=== PATIENT | male | born 1960 | race Caucasian/White ===

== ENCOUNTER 2019-03-04 13:22 | Emergency (ER) | payer MEDICAID ==
[~2019-03-04] VITALS: Ht 175.3 cm; Wt 81.8 kg
[~2019-03-04 13:22] MED LIST: CEPH-368 PO
[2019-03-04 13:38] VITALS: BP 141/93
--- NOTE | 2019-03-04 13:42 | NUR ---
PT USING DERAGATORY TERMS WITH RN, PT INFORMED THAT THOSE TERMS WILL NOT BE TOLERATED. PT INFORMED THAT BEHAVIOR LIKE THAT IS HARRASMENT. PT CALLING STAFF "DAVID"
== END 2019-03-04 14:26 | disposition home or self-care (01) ==
LOC: ED 14:20
DX: L03.811 Cellulitis of head [any part, except face] (principal); L03.211 Cellulitis of face; L03.311 Cellulitis of abdominal wall; F17.210 Nicotine dependence, cigarettes, uncomplicated
CPT/HCPCS: 99283

== ENCOUNTER 2019-03-16 11:27 | Emergency (ER) | payer MEDICAID ==
[~2019-03-16] VITALS: Ht 180.3 cm; Wt 82.7 kg
[2019-03-16 11:36] VITALS: BP 139/88
[2019-03-16] MEDS ORDERED: NEOSPORIN OINT. PKT 1 PACKET ONE (12:10)
== END 2019-03-16 12:24 | disposition home or self-care (01) ==
LOC: ED 12:18
DX: L03.114 Cellulitis of left upper limb (principal); F17.200 Nicotine dependence, unspecified, uncomplicated
CPT/HCPCS: 99283

== ENCOUNTER 2019-03-26 16:34 | Emergency (ER) | payer MEDICAID ==
[~2019-03-26] VITALS: Ht 180.3 cm; Wt 81.3 kg
[2019-03-26 16:37] VITALS: BP 126/85
--- NOTE | 2019-03-26 17:12 | NUR ---
PT ANGRY, VERBALLY ABUSIVE TO STAFF. SECURITY CALLED FOR ESCORT OUT TO DISCHARGE DESK.
== END 2019-03-26 17:14 | disposition home or self-care (01) ==
LOC: ED 17:06
DX: L98.491 Non-pressure chronic ulcer of skin of other sites limited to breakdown of skin (principal)
CPT/HCPCS: 99283